=== PATIENT | male | born 1945 | race African-American/Black ===

== ENCOUNTER 2016-12-20 10:21 | Emergency (ER) | payer OTHER ==
[~2016-12-20] VITALS: Ht 170.2 cm; Wt 70.0 kg
[2016-12-20 11:53] LABS: BASOPHILS % 0.3 % (0.0-2.0); EOSINOPHILS % 0.5 % (0.0-5.0); HEMATOCRIT. 37.6 % (42.0-52.0); HEMOGLOBIN. 12.2 g/dL (14.0-18.0); LYMPHOCYTES % 9.7 % (20.0-50.0); MEAN CORPUSCULAR HEMOGLOBIN 29.3 pg (28.0-32.0); MEAN CORPUSCULAR HGB CONC 32.5 g/dL (31.0-37.0); MEAN CORPUSCULAR VOLUME 90.1 fL (80.0-94.0); MEAN PLATELET VOLUME 9.2 fl (7.4-10.4); MONOCYTES % 6.1 % (2.0-8.0); NEUTROPHILS % 83.4 % (40.0-76.0); PLATELET 126 x1000/uL (130-400); RED BLOOD CELL COUNT 4.17 mill/uL (4.7-6.1); RED CELL DISTRIBUTION WIDTH 14.4 % (11.6-14.6); WHITE BLOOD COUNT 11.1 x1000/uL (4.5-11.0)
[2016-12-20 12:02] LABS: PROTHROMBIN TIME 10.9 sec
[2016-12-20 12:06] LABS: ALBUMIN 3.7 g/dL (3.4-5.0); ANION GAP 14; CALCIUM 8.4 mg/dL (8.5-10.1); CARBON DIOXIDE 25 mEq/L (21-32); CHLORIDE 109 mEq/L (98-107); ETHANOL BLOOD < 10 mg/dL; INDEX HEMOLYSI 1 (1-3); INDEX ICTERIC 1 (1-4); INDEX LIPEMIC 1 (1-3); UREA NITROGEN BLOOD 22 mg/dL (7-21)
[2016-12-20 12:15] LABS: ALANINE AMINOTRANSFERASE 23 IU/L (13-61); PHENYTOIN 6.3 ug/mL (10-20); eGFR > 60 mL/min (>60)
[2016-12-20 12:20] LABS: VALPROIC ACID < 3.0 ug/mL (50-100)
[2016-12-20 13:03] LABS: CLARITY URINE CLEAR (CLEAR); COLOR URINE YELLOW (YELLOW); GLUCOSE URINE NEGATIVE (NEGATIVE); KETONES URINE NEGATIVE (NEGATIVE); LEUKOCYTE ESTERASE URINE NEGATIVE (NEGATIVE); NITRITE URINE NEGATIVE (NEGATIVE); OCCULT BLOOD URINE NEGATIVE (NEGATIVE); PROTEIN URINE NEGATIVE (NEGATIVE); SPECIFIC GRAVITY URINE 1.024 (1.005-1.030); UROBILINOGEN URINE 0.2 E.U./dL (0.2-1.0)
[2016-12-20 13:18] LABS: *AMPHETAMINES SCREEN URINE NEGATIVE (NEGATIVE); *BARBITURATES SCREEN URINE NEGATIVE (NEGATIVE); *BENZODIAZEPINES SCREEN URINE NEGATIVE (NEGATIVE); *COCAINE SCREEN URINE NEGATIVE (NEGATIVE); CANNABINOID URINE SCREEN NEGATIVE (NEGATIVE); ECSTASY MDMA SCREEN URINE NEGATIVE (NEGATIVE); METHADONE URINE SCREEN NEGATIVE (NEGATIVE); OPIATES URINE SCREEN NEGATIVE (NEGATIVE); PHENCYCLIDINE URINE SCREEN NEGATIVE (NEGATIVE)
[2016-12-20] MEDS ORDERED: PHENYTOIN SODIUM 500 MG in SODIUM CHLORIDE 0.9% 50 ML IV ONE (14:15)
[2016-12-20] MEDS ORDERED: PHENYTOIN SODIUM EXTENDED 100MG CAPSULE PO ONE (15:45)
[2016-12-20 15:59] VITALS: BP 117/51
[2016-12-20] MEDS ORDERED: LEVETIRACETAM 500MG TABLET PO ONE (16:30)
== END 2016-12-20 19:02 | disposition short-term general hospital (02) ==
LOC: ER 11:07
DX: G93.40 Encephalopathy, unspecified (principal); N28.9 Disorder of kidney and ureter, unspecified; R56.9 Unspecified convulsions
CPT/HCPCS: 36415; 70450; 80053; 80165; 80185; 80305; 81003; 85025; 85610; 93005; 93971; 96365; 96366; 99285; G0482; J1165

== ENCOUNTER 2019-01-14 20:50 | Emergency (ER) | payer OTHER ==
[~2019-01-14] VITALS: Ht 170.2 cm; Wt 75.0 kg
[~2019-01-14 20:50] MED LIST: ASPI-1159 PO
[2019-01-14] MEDS ORDERED: SODIUM CHLORIDE 0.9% 1000ML BAG (SEPSIS BOLUS) IV ONE (22:45)
[2019-01-14 23:16] LABS: HEMATOCRIT. 39.8 % (42.0-52.0); HEMOGLOBIN. 13.4 g/dL (14.0-18.0); MEAN CORPUSCULAR HEMOGLOBIN 30.5 pg (28.0-32.0); MEAN CORPUSCULAR VOLUME 90.5 fL (80.0-94.0); MEAN PLATELET VOLUME 9.5 fl (7.4-10.4); PLATELET 124 x1000/uL (130-400); RED CELL DISTRIBUTION WIDTH 14.7 % (11.6-14.6)
[2019-01-14 23:23] LABS: CHLORIDE 107 mEq/L (98-107)
[2019-01-14 23:27] LABS: ETHANOL BLOOD < 10 mg/dL
[2019-01-15 01:52] LABS: PLATELET ESTIMATE SLIGHTLY DECREASED
[2019-01-15] MEDS ORDERED: CEFAZOLIN 1000MG PREMIX 50 ML IV ONE (02:30)
[2019-01-15] MEDS ORDERED: CEFTRIAXONE 1 G PREMIX 50 ML IV NR (02:45)
[2019-01-15] MEDS ORDERED: AZITHROMYCIN 500 MG in DEXT 5% WATER 250 ML IV NR (02:45)
[2019-01-15 06:20] VITALS: BP 122/55
== END 2019-01-15 06:31 | disposition short-term general hospital (02) ==
LOC: ER 23:19 → CANBEDREQ 01-15 16:17
DX: J18.9 Pneumonia, unspecified organism (principal); Z91.81 History of falling; G40.909 Epilepsy, unspecified, not intractable, without status epilepticus
CPT/HCPCS: 36415; 70450; 71045; 80053; 80320; 82140; 83605; 83690; 83880; 84443; 84484; 85025; 87040; 93005; 99285; J0456; J7030; J7060; G0480